=== PATIENT | female | born 1950 | race Caucasian/White ===

== ENCOUNTER 2019-03-22 00:21 | Day surgery (SDC) | payer MEDICARE, SELFPAY ==
[2019-03-12 13:46] VITALS: BP 159/81; PULSE 70; RESP 16; TEMP 37.1; O2SAT 98; BMI 24.9
[2019-03-22] VITALS (15 sets, daily range): BP systolic 116–167; BP diastolic 52–106; PULSE 49–77; RESP 10–20; TEMP 36.1–36.7; O2SAT 92–99
--- NOTE | 2019-03-22 07:25 | WPDHPUPDATE1 ---
History and Physical Update Update Date/Time: 03/22/19 07:25 History and Physical has been reviewed, including an updated exam of the patient. There are NO changes in the patient's condition. Risks, benefits, and alternatives have been discussed and questions answered. Patient agrees to proceed with procedure.
[2019-03-22] MEDS: LACTATED RINGERS 1,000 ML 30 ML IV CONT ×2 (10:20→14:15)
--- NOTE | 2019-03-22 10:42 | WPDANESEPPF ---
Anes - Initial Pre Proc Eval Procedure: Operation Date: 03/22/19 11:30 Proposed Procedures p Robotic Sacrocolpopexy, Possible Urethral Sling - Carlos Brandon MD Date/Time: 03/22/19 10:42 Surgeon: Carlos Brandon MD Pre Op Diagnosis: Vaginal vault prolapse, Cystocele Patient Data Age: 68 Gender: F Height: 5 ft 8 in Weight: 74.4 kg Last Vital Signs Temp 36.7 C 03/22/19 10:35 Pulse 64 03/22/19 10:35 Resp 20 03/22/19 10:35 BP 167/67 H 03/22/19 10:35 Pulse Ox 96 03/22/19 10:35 Allergies Allergy/AdvReac Type Severity Reaction Status Date / Time No Known Allergies Allergy Verified 03/12/19 13:44 Home Medications Medication Instructions Recorded Confirmed Type No Home Medications 03/12/19 03/22/19 History Patient hx anesthesia problems: none Family hx anesthesia problems: none PMFSH Social History Social History Gender identity (if verbalized by the patient): Female Anes - Eval Final PreProcedure Day of Procedure 03/22/19 10:42 Patient weight: normal Heart: regular rate and rhythm Lungs: clear to auscultation Airway: Mallampati scale class II Neurological: alert and oriented Last oral intake: >/= 8 hours ASA classification: I Emergent: no Anesthetic plan: proceed Anesthesia type and monitoring: general ETT and standard monitoring Informed Consent: The patient's anesthetic plan and its attendant risks and benefits were discussed with the patient/family/POA. Questions were solicited and answers provided to the satisfaction of the patient/family/POA.
[2019-03-22] MEDS: ceFAZolin 2 GM/D5W 50 ML 2 GM/50 ML BAG IVPB (11:42)
[2019-03-22] MEDS: metroNIDAZOLE 500 MG/ISO 100ML 500 MG/100 ML BAG 100 MG IVPB (12:05)
[2019-03-22] MEDS: BUPIVACAINE/EPINEPHRINE 0.25% 50 ML VIAL 20 ML INFILTRATE (12:56)
--- NOTE | 2019-03-22 14:31 | PM.PROC ---
Date of procedure: 03/22/19 Pre-op diagnosis: Vaginal vault prolapse, Cystocele Vaginal vault prolapse Perineal laxity Stress urinary incontinence Post-op diagnosis: same Procedure performed: Robotic assisted laparoscopic sacral colpopexy perineoplasty Mid urethral sling (transobturator sling) Cystoscopy Description of procedure: She understood the risks of bleeding, infection, damage to surrounding organs, bowel injury, bowel obstruction, recurrence of prolapse, persistent or recurrent stress incontinence, mesh related complications including exposure and extrusion, diskitis, postoperative voiding dysfunction including incontinence and retention, hip and leg pain, dyspareunia, and she agrees to proceed. She was correctly identified and informed consent was obtained. She was brought to the operating room. She was given general anesthesia. She was placed in the dorsal lithotomy position. All pressure points were padded. She was given appropriate perioperative antibiotics. Time-out performed. I anesthetized the skin 3 fingerbreadths cephalad to the umbilicus. I incised the skin. I dissected down to locate the fascia. I grasped the fascia with Fernando clamps. I entered the fascia sharply. I placed Vicryl sutures for later fascial closure. I placed a midline trocar. Under direct vision 2 additional trocars were placed on the right and left upper quadrant. She was placed in steep Trendelenburg and the robot was docked. I then sat at the console. With the Sizer in the vagina I created a plane on the anterior and posterior vaginal wall. This was done for several cm taking great care not to injure the vagina, bladder, or rectum. I introduced the mesh into the abdomen. I sewed the anterior leaflet of mesh on the anterior vaginal wall and posterior leaf of the mesh on the posterior vaginal wall with several [place] sutures taking great care not to go through and through. I then reflected the colon laterally. I opened up the posterior peritoneum over the sacral promontory. I carried this into the cul-de-sac. I kept the ureters lateral. I freed up the edges. I located the anterior longitudinal ligament of the sacrum. I tensioned the mesh appropriately. I did a vaginal exam to ensure prolapse reduction without undue tension. I then sewed the proximal leaflet of mesh onto the ligament with 3 sutures of 2 0 [place]. Next the mass was meticulously retroperitonealized with a running 2 0 Monocryl suture. I allowed the colon to go back into its normal anatomic location. There is no signs of any impingement or stricturing. The abdomen was exited. Fascia was closed. Skin was closed with Monocryl and glue. She was repositioned and prepped for urethral sling. I marked out the thigh incisions. I anesthetize the skin and made those incisions. I anesthetized the anterior vaginal wall over the mid urethra. I made a 1 cm incision. I dissected out laterally taking great care not to injure the urethra or the vaginal wall. I next passed the helical trocars to 1st on the left and then on the right. This was done from the thigh incision towards the vaginal incision. The sling was connected to the trocars and brought out through the thigh incision. I tensioned the sling appropriately. I cut and removed the plastic sheaths. I then closed the incision with 2 0 Vicryl. She had quite a bit of perineal laxity. I anesthetized the perineum. I removed a denis-shaped area of skin. I then performed a perineoplasty. I used 0 Vicryl sutures in a [id number] fashion. I then used the 2 recommend close the mucosa. There is excellent. No support without undue narrowing of the vagina. I then performed cystoscopy. The bladder is examined. There was no tumors, stones, foreign bodies, surgical artifact. Both ureters were seen to excrete clear yellow urine. There is no surgical artifact in the urethra. Catheter was then replaced. She was awakened and transferred to
[2019-03-22] MEDS: ONDANSETRON INJ 4 MG/2 ML VIAL IV PUSH ×2 (15:00→15:17)
--- NOTE | 2019-03-22 15:03 | SUR.PHASEI ---
1448 6L MASK DISCONTINUED PT ON ROOMAIR. PT ALERTX3 FOLLOWS COMMANDS
--- NOTE | 2019-03-22 15:39 | SUR.PHASEI ---
7958 SBAR FAXED TO FLOOR NOTIFIED FLOOR
--- NOTE | 2019-03-22 15:39 | SUR.PHASEI ---
1532 DR HEIN SPOKE WITH PT AT BEDSIDE, UNABLE TO SPEAK WITH FAMILY THEY HAD TO LEAVE
[2019-03-22] MEDS: KCL 20 MEQ/D5/0.45% SOD CHL 1,000 ML 100 ML IV CONT (17:01)
[2019-03-22] MEDS: KETOROLAC 15 MG/ML VIAL (*BKC) IV PUSH (20:22)
[2019-03-23 00:30] VITALS: BP 122/84; PULSE 68; RESP 20; TEMP 36.7; O2SAT 96
[2019-03-23 04:35] VITALS: BP 113/58; PULSE 63; RESP 18; TEMP 36.8; O2SAT 98
[2019-03-23] MEDS: ENOXAPARIN 40 MG/0.4 ML SYRINGE SUB-Q (07:19)
[2019-03-23] MEDS: DOCUSATE SODIUM 100 MG CAPSULE PO (07:20)
[2019-03-23] MEDS: ACETAMINOPHEN 325 MG TABLET 650 MG PO (07:20)
--- NOTE | 2019-03-23 07:50 | WPDUROPN2 ---
Progress Note: A&P Assessment and Plan (1) Prolapse of vaginal vault after hysterectomy: Code(s): N99.3 - Prolapse of vaginal vault after hysterectomy Status: Acute Assessment and Plan: Voiding trial and discharge home today (2) GREGG (stress urinary incontinence, female): Code(s): N39.3 - Stress incontinence (female) (male) Status: Acute Subjective Subjective Date/Time Seen: 03/23/19 07:50 Feels well this morning. No complaints Exam GI: Inspection: normal to inspection Palpation (GI): No abdominal tenderness, No guarding and No rigid Objective Data Vital Signs Vital Signs: Vital Signs - 24 hr 03/22/19 10:35 03/22/19 14:30 03/22/19 14:45 Temperature 98.0 F 96.9 F L Pulse Rate 64 67 49 L Respiratory Rate 20 12 10 L Blood Pressure 167/67 H 119/57 L 127/63 Pulse Oximetry 96 97 97 03/22/19 15:00 03/22/19 15:15 03/22/19 15:33 Temperature Pulse Rate 52 L 63 60 Respiratory Rate 16 16 12 Blood Pressure 116/72 143/74 H 134/66 Pulse Oximetry 93 L 93 L 93 L 03/22/19 15:48 03/22/19 16:03 03/22/19 16:42 Temperature Pulse Rate 56 L 58 L 71 Respiratory Rate 12 12 16 Blood Pressure 137/68 119/58 L 132/60 Pulse Oximetry 93 L 93 L 96 03/22/19 16:53 03/22/19 17:00 03/22/19 17:30 Temperature Pulse Rate 77 71 71 Respiratory Rate Blood Pressure 128/60 127/52 L 130/54 L Pulse Oximetry 94 L 92 L 93 L 03/22/19 18:00 03/22/19 18:10 03/22/19 19:00 Temperature 98.0 F Pulse Rate 65 66 Respiratory Rate 18 16 Blood Pressure 142/69 H 149/76 H Pulse Oximetry 94 L 96 95 03/23/19 00:30 03/23/19 04:35 Temperature 98.1 F 98.2 F Pulse Rate 68 63 Respiratory Rate 20 18 Blood Pressure 122/84 113/58 L Pulse Oximetry 96 98 Intake/Output Intake/Output: Intake & Output 03/20/19 03/21/19 03/22/19 03/23/19 23:59 23:59 23:59 23:59 Intake Total 720 1900 Output Total 852 1650 Balance -135 250 Meds/Results Medications: Active Medications Generic Name Dose Route Start Last Admin Trade Name Freq PRN Reason Stop Dose Admin Acetaminophen 650 mg 03/22/19 16:21 03/23/19 07:20 Tylenol Tablet PO 650 mg Q4H PRN Administration Mild Pain (1-3) or Fever Hydrocodone Bitart/Acetaminophen 1 tab 03/22/19 16:21 Finley 5-325 Mg PO Q4H PRN Pain Rated 4-5 Cephalexin HCl 500 mg 03/23/19 17:00 Keflex Capsule PO QID GLENIS Diphenhydramine HCl 25 mg 03/22/19 16:21 Benadryl Inj IV PUSH Q6H PRN Itching Docusate Sodium 100 mg 03/23/19 09:00 03/23/19 07:20 Colace Cap PO 100 mg DAILY GLENIS Administration Enoxaparin Sodium 40 mg 03/23/19 09:00 03/23/19 07:19 Lovenox SUB-Q 40 mg DAILY GLENIS Administration Potassium Chloride/Dextrose/Sod Cl 1,000 mls @ 100 mls/hr 03/22/19 16:21 03/23/19 02:00 Kcl 20 Meq/D5/0.45% Sod Chl IV CONT Infused .Q10H GLENIS Infusion Cefazolin Sodium 1 gm in 50 mls @ 100 mls/hr 03/22/19 20:00 03/23/19 04:29 Ancef 1 Gm/D5w 50 Ml Pm IVPB 03/23/19 12:29 100 mls/hr Q8H GLENIS Administration Ketorolac Tromethamine 15 mg 03/22/19 16:21 03/22/19 20:22 Toradol Inj IV PUSH 03/23/19 16:22 15 mg Q8H PRN Administration Pain Rated 5 or Less Morphine Sulfate 2 mg 03/22/19 16:21 Morphine Sulfate Inj IV PUSH Q2H PRN Pain Rated 6 or Greater Ondansetron HCl 4 mg 03/22/19 16:21 Zofran Inj IV PUSH Q6H PRN Nausea And Vomiting Zolpidem Tartrate 5 mg 03/22/19 16:21 Ambien PO HS PRN Insomnia
[2019-03-23 08:05] VITALS: BP 150/82; PULSE 66; RESP 16; TEMP 37.6; O2SAT 97
--- NOTE | 2019-03-23 08:52 | WPDANESPN ---
Anes - Prog Note Post-Op Date/Time: 03/23/19 08:52 Cardiovascular status: normal Respiratory status: normal Airway patency: baseline Mental status: baseline Post-Op hydration status: normal Vital Signs: Last Vital Signs Temp 37.6 C 03/23/19 08:05 Pulse 66 03/23/19 08:05 Resp 16 03/23/19 08:05 BP 150/82 H 03/23/19 08:05 Pulse Ox 97 03/23/19 08:05 I/O: Intake & Output 03/22/19 03/23/19 03/23/19 23:59 07:59 15:59 Intake Total 720 1900 Output Total 750 1650 Balance -30 250 Post-procedural complaints: none Patient Feedback: Patient satisfied with anesthetic care.
== END 2019-03-23 16:40 | disposition home or self-care (01) ==
LOC: ANHSURGERY 14:31 → ANHOB2 16:28
PROVIDERS: PCP Internal Medicine; Visit Provider Urology
PROC: (CPT 57425; principal; 2019-03-22 11:30)
DX: N99.3 Prolapse of vaginal vault after hysterectomy (principal); N39.3 Stress incontinence (female) (male)
CPT/HCPCS: 57425; 57288; S2900; 36415; 80053; 85025; 85610; 85730; 86850; 86900; 86901; 87086; 99199; A9270; C1771; C1781; J0690; J1100; J1650; J1885; J2250; J2405; J2704; J2710; J3010; J3480; J7030; J7120

== ENCOUNTER → 2021-07-09 08:41 | Outpatient (REF) | payer MEDICARE, SELFPAY | LOC: ANHLAB 08:41 | PROVIDERS: PCP Internal Medicine; Visit Provider Nurse Practitioner | DX: C44.722 Squamous cell carcinoma of skin of right lower limb, including hip (principal) | CPT/HCPCS: 88305; 88331 ==

== ENCOUNTER 2023-01-09 06:31 | Day surgery (SDC) | payer MEDICARE, SELFPAY ==
[2023-01-08 09:29] VITALS: BMI 20.7
--- NOTE | 2023-01-09 07:35 | WPDANESEPPF ---
Anes - Initial Pre Proc Eval Procedure: Operation Date: 01/09/23 10:00 Proposed Procedures p Esophagogastroduodenoscopy - Adolfo Velasco MD Date/Time: 01/09/23 07:35 Surgeon: Adolfo Velasco MD Pre Op Diagnosis: Unspecified Foreign Body in Larynx Patient Data Age: 72 Gender: F Height: 1.73 m Weight: 62 kg Allergies Allergy/AdvReac Type Severity Reaction Status Date / Time No Known Allergies Allergy Verified 01/09/23 08:44 Home Medications Medication Instructions Recorded Confirmed Type trimethoprim 100 mg tablet 100 mg PO DAILY 01/08/23 01/09/23 History Patient hx anesthesia problems: none Family hx anesthesia problems: none Results Review: All pre-operative results and documents have been reviewed as part of the pre-operative evaluation. [facility] Past Medical History Medical History (Updated 01/09/23 @ 09:26 by Adolfo Velasco MD) Choking due to food in larynx Prolapse of vaginal vault after hysterectomy Seborrheic keratosis Squamous cell carcinoma of right lower leg GREGG (stress urinary incontinence, female) Urine frequency UTI (urinary tract infection) Surgical History Surgical History History of hysterectomy Family History Family History Mother No problems noted. Father No problems noted. Social History Social History Smoking status: Never smoker Alcohol intake: never Alcohol use details: rarely - social Substance use: never Substance use type: does not use Living arrangements: alone Occupation/Education: retired Gender identity (if verbalized by the patient): Female Spiritual care concerns: No Anes - Eval Final PreProcedure Day of Procedure 01/09/23 07:35 Patient weight: normal Heart: regular rate and rhythm Lungs: clear to auscultation and normal air movement Airway: Mallampati scale class II Neurological: alert and oriented Last oral intake: >/= 8 hours ASA classification: II Emergent: no Anesthetic plan: proceed Anesthesia type and monitoring: general GIVS and standard monitoring Results Review: All pre-operative results and documents have been reviewed as part of the pre-operative evaluation. Informed Consent: The patient's anesthetic plan and its attendant risks and benefits were discussed with the patient/family/POA. Questions were solicited and answers provided to the satisfaction of the patient/family/POA.
[2023-01-09 08:51] VITALS: BP 157/91; PULSE 62; RESP 14; TEMP 36.9; O2SAT 99
[2023-01-09] MEDS: LACTATED RINGERS 1,000 ML 150 ML IV CONT (09:20)
--- NOTE | 2023-01-09 09:25 | PM.HPGS ---
History of Present Illness History of Present Illness Consent: Risks, benefits, and alternatives have been discussed and questions answered. Patient agrees to proceed with procedure. Chief complaint: Unspecified Foreign Body in Larynx Narrative: Georgia Gonzalez is a 72 year old female with choking sensation at throat level after eating or drinking, never had egd and not using ppi Review of Systems Constitutional: Constitutional: Denies headache(s) and Denies weakness Eyes: Eyes: Denies blurry vision ENT: Reports Normal hearing present, Denies headache(s) and Denies neck pain Cardiovascular: Cardiovascular: Denies chest pain and Denies dyspnea Respiratory: Respiratory: Denies dyspnea Gastrointestinal: Gastrointestinal: Reports no additional gastrointestinal complaints Genitourinary: Genitourinary: Denies dysuria Musculoskeletal: Musculoskeletal: Denies neck pain Integumentary/Breasts: Skin/Breast: Denies dry skin Neurologic: Reports Normal hearing present, Denies headache(s) and Denies weakness Psychiatric: Psychiatric: Denies anxiety Endocrine: Endocrine: Denies change in body appearance Hematologic/Lymphatic: Hematologic/Lymphatic: Denies easy bleeding Allergic/Immunologic: Allergic/Immunologic: Denies urticaria PMFSH Past Medical History Medical History (Updated 01/09/23 @ 09:26 by Adolfo Velasco MD) Choking due to food in larynx Prolapse of vaginal vault after hysterectomy Seborrheic keratosis Squamous cell carcinoma of right lower leg GREGG (stress urinary incontinence, female) Urine frequency UTI (urinary tract infection) Surgical History Surgical History History of hysterectomy Family History Family History Mother No problems noted. Father No problems noted. Social History Social History Smoking status: Never smoker Alcohol intake: never Alcohol use details: rarely - social Substance use: never Substance use type: does not use Living arrangements: alone Occupation/Education: retired Gender identity (if verbalized by the patient): Female Spiritual care concerns: No Meds Home Medications and Allergies Home Medications Medication Instructions Recorded Confirmed Type trimethoprim 100 mg tablet 100 mg PO DAILY 01/08/23 01/09/23 History Allergies Allergy/AdvReac Type Severity Reaction Status Date / Time No Known Allergies Allergy Verified 01/09/23 08:44 Vital Signs Vital Signs - 24 hr 01/09/23 08:51 Temperature 98.4 F Pulse Rate 62 Respiratory Rate 14 Blood Pressure 157/91 H Pulse Oximetry 99 Oxygen Delivery Room Air Exam Const: General: comfortable and no acute distress HENMT: Face/Nose/Sinus: Normal nares present Eyes: General: appearance normal, both eyes and all related structures Neck: Neck: no JVD Resp: Auscultation: clear to auscultation bilaterally Cardio: Rate: regular rate Rhythm: regular rhythm GI: Inspection: non-distended GI Palp: Yes Soft to palpation Skin: General skin exam: normal color Neuro: General: gait normal Speech: normal speech Extrem: General: normal to inspection Psych: Mental Status: mental status grossly normal Assessment and Plan Assessment and plan (1) Choking due to food in larynx: Code(s): T17.320A - Food in larynx causing asphyxiation, initial encounter Status: Acute Assessment and Plan: egd to assess
[2023-01-09 09:44] VITALS: BP 102/53; PULSE 66; RESP 14; TEMP 36.7; O2SAT 98
[2023-01-09 09:54] VITALS: BP 102/53; PULSE 63; RESP 14; O2SAT 98
[2023-01-09 10:04] VITALS: BP 139/80; PULSE 55; RESP 16; O2SAT 99
--- NOTE | 2023-01-09 11:09 | WPDANESPN ---
Anes - Prog Note Post-Op Date/Time: 01/09/23 11:09 Cardiovascular status: normal Respiratory status: normal Airway patency: baseline Mental status: baseline Post-Op hydration status: normal Vital Signs: Last Vital Signs Temp 36.7 C 01/09/23 09:44 Pulse 55 L 01/09/23 10:04 Resp 16 01/09/23 10:04 BP 139/80 01/09/23 10:04 Pulse Ox 99 01/09/23 10:04 O2 Del Method Room Air 01/09/23 10:04 Pain Score (VAS): 0 I/O: Intake & Output 01/08/23 01/09/23 01/09/23 23:59 07:59 15:59 Intake Total 300 Balance 300 Post-procedural complaints: none Patient Feedback: Patient satisfied with anesthetic care. Other Findings: Patient vital signs back to baseline. Patient denies nausea and vomiting. Patient's pain under control. Patient OK for discharge.
== END 2023-01-09 10:18 | disposition home or self-care (01) ==
PROVIDERS: PCP Family Medicine; Visit Provider Internal Medicine Gastroenterology
PROC: 0DJ08ZZ Inspection of Upper Intestinal Tract, Via Natural or Artificial Opening Endoscopic (ICD-10-PCS; CPT 43235; principal; 2023-01-09 10:00)
DX: K22.2 Esophageal obstruction (principal); R13.11 Dysphagia, oral phase
CPT/HCPCS: 43249; 43239

== ENCOUNTER 2023-01-09 09:00 | Outpatient (NON) | payer MEDICARE, SELFPAY | END 2023-01-09 09:01 | disposition home or self-care (01) | PROVIDERS: PCP Family Medicine; Visit Provider Internal Medicine Gastroenterology | DX: T17.320A Food in larynx causing asphyxiation, initial encounter (principal) | CPT/HCPCS: 88305 ==